=== PATIENT | female | born 1985 | race African-American/Black ===

== ENCOUNTER 2016-07-22 14:39 | Emergency (ER) | payer MEDICAID ==
[~2016-07-22] VITALS: Ht 167.6 cm; Wt 56.8 kg
[2016-07-22 16:34] VITALS: BP 127/80
[2016-07-22] MEDS ORDERED: ONDANSETRON 4MG ODT PO ONE (17:45)
== END 2016-07-22 18:17 | disposition home or self-care (01) ==
LOC: ER 18:11
DX: K52.9 Noninfective gastroenteritis and colitis, unspecified (principal); F12.10 Cannabis abuse, uncomplicated; Z98.890 Other specified postprocedural states
CPT/HCPCS: 81025; 99283